=== PATIENT | male | born 1985 | race Two or more races ===

== ENCOUNTER → 2016-07-04 | Outpatient (REF) | payer OTHER | LOC: M SMT 17:14 | PROVIDERS: ATTEND Nurse Practitioner Women's Health | DX: R35.0 Frequency of micturition (principal) ==

== ENCOUNTER → 2016-07-06 | Outpatient (CLI) | payer OTHER ==
--- NOTE | 2016-07-06 12:00 | REP ---
Renal ultrasound: There are no comparisons. The kidneys are normal size. The right kidney measures 11.3 x 6.6 x 4.5 cm. Left kidney measures 11.6 x 5.3 x 0.8 cm. Renal cortical echogenicity is normal bilaterally. There is no hydronephrosis on the right on the left. There are no renal calculi, masses or cysts on the right on the left. Bladder ultrasound: With color Doppler assessment there are bilateral ureteral jets into the urinary bladder. The bladder is adequately distended. No bladder wall masses or nodules. The prostate is upper normal size. Impression: Essentially negative renal and bladder ultrasound. Signed by Desean Nichols MD 07/06/2016 11:52 A
[2016-07-06 13:39] LABS: ANION GAP 2 MEQ/L (8-16); BLOOD UREA NITROGEN 15 MG/DL (7-18); CALCIUM LEVEL 9.4 MG/DL (8.5-10.1); CARBON DIOXIDE LEVEL 33 MEQ/L (21-32); CHLORIDE LEVEL 103 MEQ/L (98-107); CREATININE FOR GFR 1.18 MG/DL (0.70-1.30); GLOMERULAR FILTRATION RATE > 60.0 (>60); GLUCOSE, FASTING 140 MG/DL (70-105); POTASSIUM SERUM 4.3 MEQ/L (3.5-5.1); SODIUM LEVEL 138 MEQ/L (136-145)
== END ==
LOC: M SMT 10:35
PROVIDERS: ATTEND Nurse Practitioner Women's Health
DX: R35.0 Frequency of micturition (principal)